=== PATIENT | female | born 1975 | race American Indian/Alaskan Native ===

== ENCOUNTER 2016-11-17 23:26 | Emergency (ER) | payer MEDICAID ==
[2016-11-17 23:59] VITALS: BP 125/62
[2016-11-18 00:40] LABS: Basophils % (Auto) 0.5 % (0.0-1.8); Eosinophils % (Auto) 0.5 % (0.0-4.3); Hematocrit 42.9 % (30.3-42.9); Hemoglobin 13.5 gm/dl (10.1-14.3); Mean Corpuscular HGB Conc 31 % (30-34); Mean Corpuscular Hemoglobin 30 pg (28-32); Mean Corpuscular Volume 95 fl (79-97); Platelet Count 224 K/mm3 (140-440); Red Blood Count 4.52 M/mm3 (3.65-5.03); Red Cell Distribution Width 14.7 % (13.2-15.2); White Blood Count 11.6 K/mm3 (4.5-11.0)
[2016-11-18 00:51] LABS: INR 1.16 (0.87-1.13); Partial Thromboplastin Time 43.1 Sec. (24.2-36.6)
[2016-11-18 01:03] LABS: Anion Gap 22 mmol/L; BUN/Creatinine Ratio 14.28; Blood Urea Nitrogen 10 mg/dL (7-17); Carbon Dioxide 15 mmol/L (22-30); Glucose 85 mg/dL (65-100); Sodium 134 mmol/L (137-145)
[2016-11-18 01:09] LABS: Creatine Kinase MB 1.6 ng/mL (0.0-4.0)
--- NOTE | 2016-11-18 03:05 | XRay Report ---
FINAL REPORT EXAM: XR SPINE THORACIC 2V HISTORY: Upper back Pain COMPARISON: None available. FINDINGS: AP lateral views of the thoracic spine obtained. Thoracic vertebral body heights are preserved. Mild loss of disc height endplate osteophyte at several levels. Pedicles are grossly intact. IMPRESSION: Mild degenerative changes.
--- NOTE | 2016-11-18 03:05 | XRay Report ---
FINAL REPORT EXAM: XR CHEST ROUTINE 2V HISTORY: Chest Pain COMPARISON: None available. FINDINGS:: Frontal and lateral views of the chest obtained. Cardiac silhouette is within normal limits. No focal consolidation or effusion. No pneumothorax. Visualized bony thorax is grossly intact. IMPRESSION:: No acute findings.
== END 2016-11-18 03:30 | disposition left against medical advice (07) ==
LOC: ED 23:26
DX: R07.9 Chest pain, unspecified (principal); Z53.21 Procedure and treatment not carried out due to patient leaving prior to being seen by health care provider
CPT/HCPCS: 36415; 71020; 72070; 80048; 82140; 82550; 82553; 82805; 84484; 84703; 85025; 85610; 85652; 85730; 86140; 93005; 93010

== ENCOUNTER 2016-11-18 13:33 | Emergency (ER) | payer MEDICAID ==
[2016-11-18 16:50] VITALS: BP 112/70
== END 2016-11-18 17:10 | disposition home or self-care (01) ==
LOC: ED 13:33
DX: R07.89 Other chest pain (principal); F17.210 Nicotine dependence, cigarettes, uncomplicated; F12.10 Cannabis abuse, uncomplicated
CPT/HCPCS: 93005; 93010; 99282

== ENCOUNTER 2020-11-11 19:41 | Emergency (ER) | payer SELFPAY | END 2020-11-11 22:18 | disposition left against medical advice (07) | LOC: ED 19:41 | DX: J00 Acute nasopharyngitis [common cold] (principal); Z53.21 Procedure and treatment not carried out due to patient leaving prior to being seen by health care provider ==